=== PATIENT | female | born 1960 | race Caucasian/White ===

== ENCOUNTER 2017-10-07 16:21 | Emergency (ER) | payer OTHER ==
[2017-10-07 20:17] LABS: ADD MAN DIFF? NO
[2017-10-07 20:19] LABS: WHITE BLOOD COUNT 10.8 10^3/ul (4.8-10.8)
[2017-10-07 20:19] LABS: BASOPHIL # 0.1 10^3/ul (0.0-0.1); BASOPHILS % 0.6 % (0.0-2.0); EOSINOPHILS # 0.3 10^3/ul (0.0-0.5); EOSINOPHILS % 2.4 % (0.0-7.0); HEMATOCRIT 44.2 % (37.0-47.0); HEMOGLOBIN 14.5 g/dl (12.0-16.0); LYMPHOCYTES # 3.7 10^3/ul (0.8-2.9); LYMPHOCYTES % 33.9 % (15.0-51.0); MEAN CORPUSCULAR HEMOGLOBIN 29.8 pg (29.0-33.0); MEAN CORPUSCULAR HGB CONC 32.8 g/dl (32.0-37.0); MEAN CORPUSCULAR VOLUME 90.8 fl (82.0-101.0); MONOCYTE # 0.7 10^3/ul (0.3-0.9); MONOCYTES % 6.1 % (0.0-11.0); NEUTROPHIL # 6.1 10^3/ul (1.6-7.5); NEUTROPHILS % 56.7 % (39.0-77.0); PLATELET COUNT 282 10^3/UL (140-415); RED BLOOD COUNT 4.87 10^6/ul (4.20-5.40); RED CELL DISTRIBUTION WIDTH 13.5 % (11.5-14.5)
[2017-10-07 20:38] LABS: ALANINE AMINOTRANSFERASE 32 IU/L (13-69); ALBUMIN 4.4 g/dl (3.3-4.9); ALBUMIN/GLOBULIN RATIO 1.18; ALKALINE PHOSPHATASE 62 IU/L (42-121); ANION GAP 17 (8-16); ASPARTATE AMINO TRANSFERASE 23 IU/L (15-46); BILIRUBIN,INDIRECT 0.5 mg/dl (0-1.1); BILIRUBIN,TOTAL 0.5 mg/dl (0.2-1.3); BLOOD UREA NITROGEN 20 mg/dl (7-20); CALCIUM 9.8 mg/dl (8.4-10.2); CARBON DIOXIDE 31 mmol/L (21-31); CHLORIDE 103 mmol/L (97-110); CREATININE 0.96 mg/dl (0.44-1.00); GLUCOSE 89 mg/dl (70-220); POTASSIUM 4.2 mmol/L (3.5-5.1); SODIUM 147 mmol/L (135-144); TOTAL PROTEIN 8.1 g/dl (6.1-8.1)
[2017-10-07 20:59] LABS: TROPONIN-I < 0.012 ng/ml (0.00-0.12)
== END 2017-10-07 21:40 | disposition home or self-care (01) ==
LOC: FTE 16:21
DX: J20.9 Acute bronchitis, unspecified (principal); I10 Essential (primary) hypertension; J45.901 Unspecified asthma with (acute) exacerbation; F17.210 Nicotine dependence, cigarettes, uncomplicated
CPT/HCPCS: 71045; 80053; 84484; 85025; 93005; 99285-25

== ENCOUNTER 2017-10-19 16:25 | Emergency (ER) | payer OTHER ==
[2017-10-19] MEDS: LIDOCAINE 2% (MDV) 20 ML INJ INJ (17:58)
[2017-10-19] MEDS: CEFTRIAXONE 2 GM INJ IM (18:03)
== END 2017-10-19 19:33 | disposition home or self-care (01) ==
LOC: FTE 16:25
DX: J01.40 Acute pansinusitis, unspecified (principal); H66.93 Otitis media, unspecified, bilateral; H60.503 Unspecified acute noninfective otitis externa, bilateral; J45.909 Unspecified asthma, uncomplicated; I10 Essential (primary) hypertension
CPT/HCPCS: 71046; 96372; 99284-25

== ENCOUNTER 2018-04-15 10:05 | Emergency (ER) | payer OTHER ==
[2018-04-15] MEDS: DEXAMETHASONE 10 MG/ML 1 ML INJ IM (10:28)
[2018-04-15] MEDS: ALBUTEROL 0.083% (NEB) 2.5 MG/3 ML AMP HHN (10:38)
[2018-04-15] MEDS: IPRATROPIUM (NEB) 0.5 MG/2.5 ML AMP HHN (10:38)
== END 2018-04-15 12:57 | disposition home or self-care (01) ==
LOC: FTE 10:05
DX: R05 Cough (principal); I10 Essential (primary) hypertension; J45.901 Unspecified asthma with (acute) exacerbation
CPT/HCPCS: 71045; 94664; 96372; 99284-25

== ENCOUNTER 2018-07-07 23:01 | Emergency (ER) | payer OTHER ==
[2018-07-08] MEDS: IPRATROPIUM (NEB) 0.5 MG/2.5 ML AMP NEB (02:51)
[2018-07-08] MEDS: ALBUTEROL 0.5% (NEB) 2.5 MG/0.5 ML AMP NEB (02:51)
[2018-07-08] MEDS: METHYLPREDNISOLONE 125 MG INJ IM (03:07)
== END 2018-07-08 04:01 | disposition home or self-care (01) ==
LOC: FTE 23:01
DX: J40 Bronchitis, not specified as acute or chronic (principal); I10 Essential (primary) hypertension; Z87.891 Personal history of nicotine dependence
CPT/HCPCS: 71045; 94664; 96372; 99284-25

== ENCOUNTER 2018-12-09 16:50 | Emergency (ER) | payer OTHER ==
[2018-12-09 17:48] LABS: ADD MAN DIFF? NO
[2018-12-09 17:57] LABS: BASOPHIL # 0.1 10^3/ul (0.0-0.1); BASOPHILS % 0.6 % (0.0-2.0); EOSINOPHILS # 0.3 10^3/ul (0.0-0.5); EOSINOPHILS % 2.8 % (0.0-7.0); HEMATOCRIT 41.6 % (37.0-47.0); HEMOGLOBIN 13.6 g/dl (12.0-16.0); LYMPHOCYTES % 27.4 % (15.0-51.0); MEAN CORPUSCULAR HGB CONC 32.7 g/dl (32.0-37.0); MEAN CORPUSCULAR VOLUME 91.8 fl (82.0-101.0); MEAN PLATELET VOLUME 11.2 fl (7.4-10.4); MONOCYTE # 0.7 10^3/ul (0.3-0.9); MONOCYTES % 6.5 % (0.0-11.0); NEUTROPHIL # 6.8 10^3/ul (1.6-7.5); NEUTROPHILS % 62.3 % (39.0-77.0); PLATELET COUNT 249 10^3/UL (140-415); RED BLOOD COUNT 4.53 10^6/ul (4.20-5.40); RED CELL DISTRIBUTION WIDTH 13.2 % (11.5-14.5)
[2018-12-09 17:57] LABS: WHITE BLOOD COUNT 10.9 10^3/ul (4.8-10.8)
[2018-12-09 18:13] LABS: ANION GAP 5 (5-13); BLOOD UREA NITROGEN 17 mg/dl (7-20); CALCIUM 9.2 mg/dl (8.4-10.2); CARBON DIOXIDE 30 mmol/L (21-31); CHLORIDE 108 mmol/L (97-110); CREATININE 0.73 mg/dl (0.44-1.00); Estimated GFR > 60 mL/min (>60); GLUCOSE 109 mg/dl (70-220); POTASSIUM 3.8 mmol/L (3.5-5.1); SODIUM 143 mmol/L (135-144)
[2018-12-09 18:21] LABS: B-TYPE NATRIURETIC PEPTIDE 55 PG/ML (0-125)
[2018-12-09 18:25] LABS: TROPONIN-I < 0.012 ng/ml (0.000-0.120)
[2018-12-09 18:38] LABS: INR 0.87; PARTIAL THROMBOPLASTIN TIME 27.5 Sec (23.0-35.0); PROTIME 11.9 Sec (11.9-14.9); PT RATIO 0.9
[2018-12-09 18:41] LABS: D-DIMER 1930.56 ng/ml (<460)
[2018-12-09] MEDS: IOHEXOL 100 ML (19:50)
[2018-12-09] MEDS: SOD CHLORIDE 0.9% 100 ML (19:50)
[2018-12-09] MEDS: KETOROLAC 30 MG INJ IV (22:02)
== END 2018-12-09 22:10 | disposition home or self-care (01) ==
LOC: E/R 22:10
DX: M54.5 Low back pain (principal); R06.00 Dyspnea, unspecified; J45.909 Unspecified asthma, uncomplicated; I10 Essential (primary) hypertension; R06.02 Shortness of breath; Z79.82 Long term (current) use of aspirin
CPT/HCPCS: 36415; 71045; 71275; 80048; 83880; 84484; 85025; 85378; 85610; 85730; 93005; 93970; 96374; 99285-25